=== PATIENT | female | born 1930 | race Caucasian/White ===

== ENCOUNTER 2018-08-13 18:07 | Inpatient (IN) | payer OTHER ==
[~2018-08-13] VITALS: Ht 165.1 cm; Wt 71.7 kg
[2018-08-13 18:07] VITALS: BP 136/90
[~2018-08-13 18:07] MED LIST: ACETAMINOPHEN325 M1 PO; AMITRIPTYLINE H10 M1 PO; AMITRIPTYLINE H10 M3; AMITRIPTYLINE H25 M2; ASPIRIN325 PO; BACTRIM DS TAB1 EACH PO; BENADRYL ALLERG25 MG PO; BENADRYL25 MG PO; CARAFATE 1 GM TA1 G1; CARAFATE 1 GM TA1 G1 PO; DONEPEZIL HCL 55 M1 PO; HYDROCODON-ACE1 EAC5 PO; HYDROCODON-ACE1 EAC7 PO; HYDROCODON-ACE1 EAC8 PO; HYDROCODON-ACE1 EACH PO; HYDROCODONE PO; IBUPROFEN200 M2 PO; LEVOXYL75 MCG PO; LEVSIN0.125 MG PO; LOPERAMIDE 2 MG2 M1 PO; LUNESTA1 MG PO; LUNESTA3 MG PO; NOHOMEMEDICATIONS; NORCO 5-325 TA1 EACH; OSCIMIN0.125 MG; PEPTO-BISM262 MG/15 PO; PHENERGAN 25 MG25 M1 PO; PHILLIPS500 MG PO; PREMARIN VAGINAL CRE VAG; PRILOSEC40 MG PO; PROTONIX 20 MG20 M1; PROTONIX40 M2 PO; TRAMADOL 50 MG50 MG PO; TUMS PO; ULTRAM 50MG TAB50 MG PO; [UNRECOGNIZED DRUG - CODE] PO
[2018-08-13] MEDS ORDERED: VITAMIN D250000 UNIT PO (18:09)
[2018-08-13] MEDS ORDERED: LEVSIN0.125 MG PO (18:09)
[2018-08-13 18:31] LABS: URINE BILIRUBIN NEGATIVE (Negative); URINE BLOOD NEGATIVE (Negative); URINE CLARITY CLEAR; URINE COLOR YELLOW; URINE GLUCOSE-RANDOM NEGATIVE (Negative); URINE KETONES NEGATIVE (Negative); URINE LEUKOCYTES-REFLEX NEGATIVE (Negative); URINE NITRITE-REFLEX NEGATIVE (Negative); URINE PROTEIN NEGATIVE (Negative); URINE SPECIFIC GRAVITY 1.025 (1.005-1.030); URINE UROBILINOGEN 0.2 E.U./dl (0.2-1.0)
[2018-08-13 18:42] LABS: ABSOLUTE LYMPHOCYTES 0.9 thou/uL (0.8-5.3); ABSOLUTE NEUTROPHILS 10.7 thou/uL (1.6-8.1); BASOPHILS 0.3 %; EOSINOPHILS 0.1 %; HEMATOCRIT 41.6 % (37.0-47.0); HEMOGLOBIN 13.7 gm/dL (12.0-15.0); LYMPHOCYTES 6.9 %; MCH 28.8 pg (26.0-34.0); MCV 87.3 fL (80.0-100.0); MONOCYTES 8.1 %; MPV 8.9 fl. (7.2-11.1); NUCLEATED RBCS 0 /100WBC; PLATELET COUNT* 228 thou/uL (150-400); POLYS 84.6 %; RBC 4.77 mil/uL (4.20-5.00); RDW-CV 14.2 % (10.5-14.5); WBC 12.6 thou/uL (4.0-11.0)
[2018-08-13 18:51] LABS: ANION GAP 9 mmol/L (7-16); BUN 17 mg/dL (7-18); CALCIUM 9.2 mg/dL (8.5-10.1); CHLORIDE 105 mmol/L (98-107); CO2 27 mmol/L (21-32); CREATININE 1.1 mg/dL (0.6-1.3); GLUCOSE 140 mg/dL (70-99); POTASSIUM 3.8 mmol/L (3.5-5.1); SODIUM 141 mmol/L (136-145)
[2018-08-13 18:54] LABS: APTT 26.4 Seconds (25.0-31.3); PROTIME 10.3 Seconds (9.20-11.50)
[2018-08-13 19:04] LABS: ALBUMIN 3.3 g/dL (3.4-5.0); ALKALINE PHOSPHATASE 118 U/L (46-116); CK-MB MASS 0.6 ng/mL (<0.5-3.6); NT-PRO BRAIN NAT PEPTIDE 445 pg/mL (<300); SGOT 13 U/L (15-37); SGPT 12 U/L (30-65); TOTAL BILIRUBIN 0.5 mg/dL (<0.1-1.0); TROPONIN-I LEVEL <0.06 ng/mL (<0.06)
[2018-08-13] MEDS ORDERED: PROTONIX40 M1 PO (21:11)
[2018-08-13] MEDS ORDERED: MYRBETRIQ50 MG PO (21:12)
[2018-08-13 21:20] VITALS: BP 128/82; BP 133/66
--- NOTE | 2018-08-14 07:07 | NUR ---
PT TO FLOOR APPOX 21OO. ADMISSION COMPLETED CHARTED, PT FAMILY TO BRING COPY OF LIVING WILL. SEE MAR. SEE CHARTING. FALL PRECAUTIONS IN PLACE. VITAL SIGNS STABLE. HOURLY ROUNDING FOR SAFETY.
[2018-08-14 08:00] VITALS: BP 118/57
--- NOTE | 2018-08-14 11:13 | EKG ---
[place] [address] ELECTROCARDIOGRAM REPORT Name: REGINA DIMASINE Room: [address] ADM IN M.R.#: [id number] Admission: 08/13/18 Attend Phys: Azael Hermosillo Discharge: Date of : [birth year] Report #: [id number] THIS REPORT FOR: //name// 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1930 Requested By: Armaan Skelton Order Number: [id number] MD: Milton Marvin Measurements Intervals [place] Rate: 99 P: 45 TN: 180 QRS: -59 QRSD: 95 T: 75 QT: 339 QTc: 435 Interpretive Statements Sinus rhythm Left anterior fascicular block Abnormal R-wave progression, late transition Minimal ST depression, lateral leads Compared to ECG 12/23/2016 21:09:15 ST (T wave) deviation now present Electronically Signed On 08-14-2018 11:13:20 CDT by Milton Marvin [email or web address] <ELECTRONICALLY SIGNED> By: Milton Marvin MD, [facility] 08/14/18 1113 1814 1814 Milton Marvin MD, [facility] /EPI
--- NOTE | 2018-08-14 11:46 | NUR ---
RECEIVED REPORT FROM WILL AND ASSUMED CARE OF PT @ 7784.PT IS ALERT TO SELF AND CONFUSED.PT IS IMPULSIVE AND KEEPS TRYING TO GET OUT OF BED AND CANT FOLLOW DIRECTIONS TO CALL NURSES STATION.VSS,MED-SURG STATUS,IV PATENT WITH IV FLUIDS INFUSING PER ORDERS.PT IS CALM AND COOPERATIVE WITH NO C/O PAIN.PT LEFT RESTING IN BED WITH CALL LIGHT AND FALL PRECAUTIONS IN PLACE.WILL CONTINUE TO MONITOR.
--- NOTE | 2018-08-14 14:06 | NUR ---
Left for Pt's dtr, awaiting call back
[2018-08-14 16:00] VITALS: BP 121/63
--- NOTE | 2018-08-14 17:41 | NUR ---
VSS.MED-SURG STATUS.PT REMAINS ON 2L O2 NC.PT IS CONFUSED BUT COOPERATIVE.NO C/O PAIN.IV PATENT WITH IVF INFUSING PER ORDERS.HOURLY ROUNDING COMPLETED FOR PT SAFETY.CALL LIGHT AND FALL PRECAUTIONS IN PLACE.WILL CONTINUE TO MONITOR FOR DURATION OF SHIFT.
[2018-08-14 20:00] VITALS: BP 110/65
[2018-08-15] VITALS: BP 115/57
[2018-08-15 05:10] LABS: HEMATOCRIT 37.7 % (37.0-47.0); HEMOGLOBIN 12.9 gm/dL (12.0-15.0); MCH 29.7 pg (26.0-34.0); MCHC 34.3 g/dL (28.0-37.0); MCV 86.6 fL (80.0-100.0); MPV 9.2 fl. (7.2-11.1); RBC 4.35 mil/uL (4.20-5.00); RDW-CV 13.9 % (10.5-14.5); WBC 11.6 thou/uL (4.0-11.0)
--- NOTE | 2018-08-15 05:58 | NUR ---
PT ORIENTED TO SELF. PT UP FREQUENTLY TO SIT ON COMMODE. PT HAS RETENTTION AND URGENCY. URINATING VERY SMALL AMOUNTS AT A TIME. SENT SAMPLE FOR UA. BLADDER SCANNED @ 0238-AMOUNT 211CC AFTER VOIDING. NO SOA REPORTED OR OBSERVED. CALL LIGHT IN REACH. HOURLY ROUNDING FOR SAFETY.
[2018-08-15 06:31] LABS: ALBUMIN 2.9 g/dL (3.4-5.0); CALCIUM 9.2 mg/dL (8.5-10.1); CREATININE 1.1 mg/dL (0.6-1.3); MAGNESIUM 1.8 mg/dL (1.8-2.4); POTASSIUM 3.9 mmol/L (3.5-5.1); TOTAL BILIRUBIN 0.6 mg/dL (<0.1-1.0); TOTAL PROTEIN 6.6 g/dL (6.4-8.2)
[2018-08-15 06:41] LABS: URINE BILIRUBIN NEGATIVE (Negative); URINE BLOOD TRACE (Negative); URINE CLARITY CLEAR; URINE COLOR YELLOW; URINE GLUCOSE-RANDOM NEGATIVE (Negative); URINE KETONES TRACE (Negative); URINE LEUKOCYTES-REFLEX TRACE (Negative); URINE NITRITE-REFLEX NEGATIVE (Negative); URINE PROTEIN NEGATIVE (Negative); URINE UROBILINOGEN 0.2 E.U./dl (0.2-1.0)
[2018-08-15 07:03] LABS: SQUAMOUS 4-10 Moderate /LPF (0-3)
[2018-08-15 07:04] LABS: URINE RBC None Seen /HPF (0-2); URINE WBC-REFLEX 0-5 Rare /HPF (0-5)
[2018-08-15 07:05] LABS: BACTERIA-REFLEX 1-9 Few /HPF (None Seen); CASTS None Seen /LPF (None Seen); CRYSTALS None Seen /LPF (None Seen); MUCUS 0-3 Light strn/LPF (None Seen)
[2018-08-15 08:00] VITALS: BP 123/61
--- NOTE | 2018-08-15 13:23 | NUR ---
CM spoke with Pt's dtr via phone. Dtr informs that Pt resides at home with her , dtr lived with her parents up until a few months ago when she got , dtr now lives in [place]. Per dtr, when she lived there, she made sure that Pt and would get up and take their meds appropriately. Pt's son lives next door and has been assisting since dtr moved out. Dtr states that Pt has a walker and commode at home. Dtr states that Pt and are pretty sedentary, but stated that Pt was able to walk about their home. has a caregiver that comes in through the [place], and she will prepare meals for the both of them, but she is only really there for , so she doesn't check to make sure that Pt has taken her meds. Dtr voices concerns regarding whether Pt has taken her meds as scheduled d/t hx of dementia. CM left for Pt's son to assess his level of involvement. Hx of [facility]. Hx of acute rehab. Discussed disposition, plan [place]. Dtr states that she would be willing to allow parents to come and live at her home, if the need arises. Awaiting call back from son. Dtr wants [facility] for skilled, but wants CM to discuss with son first. Following.
--- NOTE | 2018-08-15 13:46 | NUR ---
ASSUMED PT CARE REPORT RECEIVED FROM NURSE PT IS AOX3 FORGETFUL ON MEDSURG STATUS. ON 2 L NC SATURATION IS 94%. PT OUT OF BED TO CHAIR. IV ABX GIVEN. IVF INFUSING AT 100CC PER HOUR. PT HAS GOOD APPETITE. FALL PRECAUTION IN PLACE. PT TO BE TRANSFERED TO [facility] . REPORT GIVEN TO J&S NURSE. PT TRANSFERED AT 1345 ON WHEELCHAIR
--- NOTE | 2018-08-15 19:08 | NUR ---
REC'D REPORT APPROX 1400. PATIENT CONFUSED, REPEATING CONVERSATION. PATIENT HIGH FALL RISK, TRANSFERRED TO 115 FOR CLOSER OBSERVATION. UP TO CHAIR FOR SUPPER MEAL, ATE LESS THAN 25%. UP TO BSC W/ MIN ASST. VOIDING SM AMTS. BLADDER SCAN DONE THIS AFTERNOOON, APROX 250ML NOTED. IV CATH SITE NOTED INTACT. IV FLUIDS INFUSING W/O DIFF. CURRENTLY RESTING IN BED, EYES CLOSED, NO ACUTE DISTRESS NOTED. O2 2L/NC. CALL LIGHT IN REACH. HOB UP 30 DEGREES. ~TJRN
[2018-08-15 22:00] VITALS: BP 142/68
--- NOTE | 2018-08-16 07:33 | NUR ---
PT ORIENTED TO SELF ONLY. VITALS STABLE WITH 3L OF OXYGEN BY NC. PT CONFUSED AND TRIED TO GET UP EVERY TIME. UP TO BEDSIDE COMMODE WITH ASSIST WITH WALKER AND GAIT BELT. BED ALARM ON. MEDS GIVEN ORDERED. POST VOIDING RESIDUAL 146ML AT 0530. WILL CONTINUE TO MONITOR.
[2018-08-16 08:02] VITALS: BP 178/95
[2018-08-16 16:43] VITALS: BP 157/81
--- NOTE | 2018-08-16 19:00 | NUR ---
PATIENT PLEASANT AND COOPERATIVE THIS AM, USING CALL LIGHT FOR ASST. PATIENT BECOMES MORE CONFUSED MID AFTERNOON, INCREASING ANXIOUS, GETTING UP INDEP, NEEDS FREQUENT REDIRECTION. SEE MAR. IV CHANGED THIS AM, SEE INTERVENTION. ALEXANDERENY RESTING IN BED, SIDERAILS X4 UP, CALL LIGHT IN REACH, BED ALARM ON. O2 RA. ~TJRN
--- NOTE | 2018-08-17 07:31 | NUR ---
PT ORIENTED TO SELF ONLY, CONFUSED AND FORGETFUL. MEDS GIVEN ORDERED. PT DENIED PAIN. TEMP 99.9 AT 2200. TYLENOL PROVIDED, 98.8 ON RECHECK. UP TO THE COMMODE TO VOID EVERY 15 MINUTES WITH MAX ASSIST. AT MIDNIGHT, LABORED BREATHING NOTED AND HR FLUCTUATING. EKG DONE. SINUS TACHYCARDIA. 400 ML POST VOID RESIDUAL ON BLADDER SCAN AT 0600. NOTIFIED WILL CONTINUE TO MONITOR.
[2018-08-17 09:05] VITALS: BP 145/67
--- NOTE | 2018-08-17 15:25 | NUR ---
ASSUMED CARE OF PT AT 0700. PT RESTLESS AND ANXIOUS, TRYING TO CLIMB OUT OF RECLINER CHAIR. PT REORIENTATED TO IMPORTANCE OF USING CALL LIGHT.PRESSURE ALARM IN PLACE. MORNING MEDICATION ADMINISTERED ORDERED. ABT IV GIVEN AND FLUIDS INFUSING AT 100ML/HR. 0930 PT CONFUSED AND CONT TRYING TO CLIMB OUT OF CHAIR. ATIVAN 0.5MG GIVEN FOR INCREASED ANXIETY AND RESTLESSNESS.
--- NOTE | 2018-08-17 15:29 | NUR ---
1300 PT HAS HAD MINIMAL OUTPUT SO FAR THIS SHIFT. PT IS USUALLY CONTINENT AND ABLE TO URINATE ON COMMODE. PT LETHARGIC AND HAS NOT COMMUNICATED THE NEED TO USE THE RESTROOM. ON ASSESSMENT PT IN CONTINENT OF URINE, BUT MINIMAL. THIS NURSE INFORMED . NEW ORDERS RECEIVED; 1.STRAIGHT CATH PT FOR NO OUTPUT >8 HOURS. 2.START FLOMAX 0.4MG @HS DX; URINARY RETENTION. ORDERS ENTERED, FAMILY IN PT ROOM, INFORMED OF NEED TO STRAIGHT CATH. THEY EXPRESSED UNDERSTANDING.
[2018-08-17 16:00] VITALS: BP 129/58
[2018-08-17 17:51] LABS: BE -5.9 mmol/L (-2 to +3); PCO2 39.3 mmHg (35.0-45.0); PO2 88.6 mmHg (75.0-100.0); pH 7.319 (7.340-7.450)
--- NOTE | 2018-08-17 18:43 | NUR ---
1500 PT CONT TO EXHIBIT RESPIRATORY DISTRESS, STERNAL RETRACTIONS NOTED. O2 @ 2L VIA NC SATS REMAIN AROUND 96-97%. 1630 PT FAMILY HERE THROUGH THIS SHIFT AND CONT TO EXPRESS CONCERN ABOUT "PT CONDITION DETORIATING" STATING, "THIS IS NOT LIKE HER, SHE IS CONFUSED BUT ALWAYS TALKS TO US, AND SHE HAS NEVER HAD TROUBLE BREATHING" THIS NURSE INFORMED AND NEW ORDERS WERE RECEIVED. WE KNOW IT IS A HOLIDAY BUT WE WANT SOMETHING DONE, WE WANT TO KNOW WHAT IS WRONG AND WHY SHE IS GETTING WORSE INSTEAD OF BETTER"
--- NOTE | 2018-08-17 18:50 | NUR ---
NEW ORDERS FROM DR. PETERS RECEIVED; ABG STAT, CXR STAT, ZOPHANEX BREATHING TREATMENT STAT AND Q4H PRN. 1815 RESULTS RECEIVED AND CALLED TO [facility]; .
[2018-08-17 19:41] LABS: ABSOLUTE EOSINOPHILS 0.1 thou/uL (0.0-0.7); ABSOLUTE MONOCYTES 0.8 thou/uL (0.0-1.2); ABSOLUTE NEUTROPHILS 5.4 thou/uL (1.6-8.1); BASOPHILS 0.5 %; EOSINOPHILS 1.6 %; HEMATOCRIT 34.9 % (37.0-47.0); HEMOGLOBIN 11.8 gm/dL (12.0-15.0); LYMPHOCYTES 13.5 %; MCH 29.4 pg (26.0-34.0); MCHC 33.8 g/dL (28.0-37.0); MCV 86.8 fL (80.0-100.0); MONOCYTES 11.2 %; MPV 8.8 fl. (7.2-11.1); NUCLEATED RBCS 0 /100WBC; PLATELET COUNT* 233 thou/uL (150-400); POLYS 73.2 %; RBC 4.02 mil/uL (4.20-5.00); RDW-CV 13.8 % (10.5-14.5); WBC 7.4 thou/uL (4.0-11.0)
--- NOTE | 2018-08-17 19:50 | NUR ---
1830 PT IS BEING TRANSFERRED TO TELEMETRY ROOM 214
[2018-08-17 19:57] LABS: ANION GAP 9 mmol/L (7-16); BUN 11 mg/dL (7-18); CALCIUM 8.6 mg/dL (8.5-10.1); CHLORIDE 109 mmol/L (98-107); CO2 25 mmol/L (21-32); CREATININE 1.1 mg/dL (0.6-1.3); GLUCOSE 89 mg/dL (70-99); POTASSIUM 3.5 mmol/L (3.5-5.1); SODIUM 143 mmol/L (136-145)
[2018-08-17 20:00] VITALS: BP 136/77
[2018-08-17 20:08] LABS: TROPONIN-I LEVEL <0.06 ng/mL (<0.06)
[2018-08-18] VITALS: BP 134/72
[2018-08-18 04:00] VITALS: BP 130/51
[2018-08-18 05:16] LABS: HEMATOCRIT 34.7 % (37.0-47.0); HEMOGLOBIN 11.8 gm/dL (12.0-15.0); MCH 29.6 pg (26.0-34.0); MPV 8.9 fl. (7.2-11.1); RBC 3.99 mil/uL (4.20-5.00); RDW-CV 13.7 % (10.5-14.5); WBC 8.6 thou/uL (4.0-11.0)
[2018-08-18 05:35] LABS: ALBUMIN 2.5 g/dL (3.4-5.0); CREATININE 1.1 mg/dL (0.6-1.3); MAGNESIUM 1.5 mg/dL (1.8-2.4); POTASSIUM 3.5 mmol/L (3.5-5.1); TOTAL BILIRUBIN 0.5 mg/dL (<0.1-1.0); TOTAL PROTEIN 5.9 g/dL (6.4-8.2)
--- NOTE | 2018-08-18 05:40 | NUR ---
PT ALERT CONFUSED. ASKING TO GO TO BR Q 5-10 MIN. VOID SMALL AMTS FREQUENTLY. FLOMAX STARTED AT HS. NS AT 100. TELEMETRY SHOWS SR 1ST DEGREE AVB BBB. BREATH SOUNDS DIM WITH WHEZZING. O2 AT 2 LITERS NC. TURN Q 2 HOURS. COUGHING WITH TURNS.
[2018-08-18 08:00] VITALS: BP 144/70
--- NOTE | 2018-08-18 08:58 | NUR ---
CM left message for admissions at [facility] regarding status of referral. CM messaged rehab tech to request that PT/OT see Pt as soon as they can, CM to fax updated therapy notes to [facility] once available. [facility] to initiate auth once therapy notes are available.
--- NOTE | 2018-08-18 10:32 | EKG ---
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1930 Requested By: Edilia Roca Order Number: [id number] Reading MD: Shaan Arriaza Measurements Intervals [place] Rate: 104 P: 66 [place]: 193 QRS: -54 QRSD: 100 T: 65 QT: 381 QTc: 502 Interpretive Statements Sinus tachycardia LAD, consider left anterior fascicular block Abnormal R-wave progression, late transition Prolonged QT interval Compared to ECG 08/13/2018 18:14:20 Prolonged QT interval now present Sinus rhythm no longer present ST (T wave) deviation no longer present Electronically Signed On 08-18-2018 10:31:56 CDT by Shaan Arriaza [email or web address] <ELECTRONICALLY SIGNED> By: Shaan Arriaza MD, FAC 08/18/18 1031 0028 0028 Shaan Arriaza MD, FAC /EPI
[2018-08-18 11:53] VITALS: BP 125/84
[2018-08-18 16:00] VITALS: BP 141/66
[2018-08-18 20:00] VITALS: BP 139/81
[2018-08-19] VITALS: BP 148/65
[2018-08-19 04:00] VITALS: BP 154/70
--- NOTE | 2018-08-19 05:56 | NUR ---
ASSUMED CARE OF PT AFTER REPORT AT 1930. PT A&OX1. ONLY ORIENTED TO HERSELF. FORGETFUL. VSS. PHYSICAL ASSESSMENT COMPLETED AND CHARTED. PT ON O2 AT 2L NC. PT TRACING ST PACS ON TELE. PT UP WITH 1 ASSIST TO BSC. PT GOES TO THE BSC FREQUENTLY. FORGETS TO USE CALL LIGHT. PT COMPLAINED OF GENERALIZED PAIN- PAIN MEDS GIVEN PER MAR.
[2018-08-19 08:10] VITALS: BP 112/57
--- NOTE | 2018-08-19 10:38 | NUR ---
Updated therapy notes faxed to [employer], awaiting on insurance auth for skilled placement.
--- NOTE | 2018-08-19 11:49 | NUR ---
Nutrition: seen for LOS. Intake 60% of breakfast. Pt reports her appetite is not great. Does not know UBW, not wt loss from admit. Albumin low, meds reivewed. Pt would like to try Ensure once daily. Assessed a low-mild nutrition risk.
[2018-08-19 11:59] VITALS: BP 122/77
[2018-08-19 15:17] LABS: ABSOLUTE EOSINOPHILS 0.2 thou/uL (0.0-0.7); ABSOLUTE LYMPHOCYTES 0.8 thou/uL (0.8-5.3); ABSOLUTE MONOCYTES 0.8 thou/uL (0.0-1.2); BASOPHILS 0.6 %; EOSINOPHILS 2.5 %; HEMATOCRIT 33.4 % (37.0-47.0); HEMOGLOBIN 11.4 gm/dL (12.0-15.0); LYMPHOCYTES 11.8 %; MCH 29.3 pg (26.0-34.0); MCV 86.2 fL (80.0-100.0); MONOCYTES 12.2 %; MPV 8.4 fl. (7.2-11.1); NUCLEATED RBCS 0 /100WBC; PLATELET COUNT* 240 thou/uL (150-400); POLYS 72.9 %; RBC 3.87 mil/uL (4.20-5.00); RDW-CV 13.6 % (10.5-14.5); WBC 6.9 thou/uL (4.0-11.0)
[2018-08-19 15:25] LABS: CALCIUM 8.3 mg/dL (8.5-10.1)
[2018-08-19 15:28] LABS: MAGNESIUM 1.8 mg/dL (1.8-2.4); PHOSPHORUS* 2.2 mg/dL (2.5-4.9)
[2018-08-19 16:11] VITALS: BP 152/83
--- NOTE | 2018-08-19 19:31 | NUR ---
ASSUMED PT CARE AT 0730, FULL ASSESMENT DONE CHARTED. PT ORIENTED TO SELF AND SITUATION THIS AM. DENIES PAIN, VSS, ST ON THE MONITOR. O2 SAT 95% ON 2L. PT DROWSY BUT WAKES EASILY. UP TO CHAIR, WORKED WITH PT. WALKED WITH STAFF TO [facility]. THIS AFTERNOON, PT HAD EPISODE OF TACHYCARDIA IN THE 160'S, PT WAS SLEEPING AT THE TIME. CONCERNED THAT PT WAS HAVING APNEA, BIPAP STARTED. PT TOLERATED IT WELL. WAS PLACED BACK ON 2L FOR DINNER. PT UP TO [facility] SEVERL TIMES AND WAS UNABLE TO URINATE, STRAIT CATHED PT THIS EVENING GETTING 650 MLS OUT. PTS APPITITE MINIMAL. BOOST OFFERED, PT DRINKING IT AT THIS TIME. REPORT GIVEN TO BRANDON PHILLIPS
[2018-08-19 20:00] VITALS: BP 149/83
[2018-08-19 20:04] LABS: URINE BILIRUBIN NEGATIVE (Negative); URINE BLOOD NEGATIVE (Negative); URINE CLARITY CLEAR; URINE COLOR YELLOW; URINE GLUCOSE-RANDOM NEGATIVE (Negative); URINE KETONES 1+ (Negative); URINE LEUKOCYTES-REFLEX NEGATIVE (Negative); URINE NITRITE-REFLEX NEGATIVE (Negative); URINE PROTEIN NEGATIVE (Negative); URINE SPECIFIC GRAVITY 1.025 (1.005-1.030); URINE UROBILINOGEN 0.2 E.U./dl (0.2-1.0)
[2018-08-20] VITALS: BP 118/49
[2018-08-20 04:00] VITALS: BP 122/49
--- NOTE | 2018-08-20 04:48 | NUR ---
ASSUMED CARE OF PT AFTER REPORT AT 1930. PT A&0X1. ONLY ORIENTED TO HERSELF. REORIENTATION DONE. FORGETFUL. VSS. PHYSICAL ASSESSMENT COMPLETED AND CHARTED. PT ON O2 AT 3L NC/BIPAP WHEN SLEEPING. PT UP WITH 1 ASSIST TO BSC. PER DAUGHTER, PTS A SIDE SLEEPER AND USUALY SLEEP LATE IN AM AND WAKES UP AT NOON. PTS RETAINING URINE [address] HARTLEY INFORMED WITH ORDER TO INSERT STOKES AND DRAINED 600 MLS. PT TURNED ALBIN SIDES. CALL LIGHT WITHIN REACH.
--- NOTE | 2018-08-20 07:42 | CON ---
[address] [address] CONSULTATION Name: AURELIO DIMAS Room: [address] IN M.R.#: [id number] Admission: 08/13/18 Attend Phys: Azael Hermosillo Discharge: Date of : [birth year] Report #: [id number] THIS REPORT FOR: //name// CC: Vivian Ortega DATE OF SERVICE: 08/18/2018 REQUESTING PHYSICIAN: Dr. Edilia Roca. REASON FOR CONSULTATION: Respiratory distress and pneumonia. DISCUSSION: The patient is an 88-year-old woman who is a lifelong nonsmoker with no prior history of known lung disease. She does have a history of underlying dementia. She still is able to reside in her own home with her with support from family members. She was brought to the Emergency Department on 08/13/2018. She had been getting progressively weaker at home. She was also having issues with shortness of breath. Baseline, she does have some dementia, but was getting more confused. Was seen in the Emergency Department. X-rays revealed infiltrate. O2 saturations were marginal. Blood cultures were sent. She also had leukocytosis. She has been on antibiotics since admission. Had some low-grade fevers initially, those have improved. Over the weekend, she did have some episodes where she was much more short of breath. Unfortunately, she was also having increasing confusion. Did receive some doses of Ativan as well as amitriptyline. Those have since been discontinued. At the time I am seeing her today, she is quite sleepy. Does have a granddaughter and great granddaughter at the bedside who was able to provide some additional information. Otherwise, much of that is taken from the record. PAST MEDICAL HISTORY: Remarkable for the dementia. Did have prior left hip fracture requiring time in rehab several years ago, achalasia, has had bilateral rotator cuff surgery, cholecystectomy, tubal ligation, prior cellulitis, skin abscess and some back issues. HOME MEDICATIONS: Levothyroxine, amitriptyline 10 mg at bedtime, benazepril, vitamin D, Levsin, Protonix and Myrbetriq. SOCIAL HISTORY: She is a lifelong nonsmoker. She is . 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 REVIEW OF SYSTEMS: Unable to obtain from the patient. Talking to her family at the bedside, does appear she is generally fairly [place] [address] CONSULTATION Name: AURELIO DIMAS Room: [address]#: [id number] Admission: 08/13/18 Attend Phys: Azael Hermosillo Discharge: Date of : [birth year] Report #: [id number] basic ADLs. They do have help. However, she is extremely sedentary. 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 Then goes to bed and sleeps until about 3:00 p.m. She is not on any oxygen at home. She had been getting more confused at home. Family has also noted that she intermittently has some coughing and choking with p.o. intake at home even before this acute illness. Not aware of any recent falls. Otherwise, unable to obtain from the patient. FAMILY HISTORY: Positive for colon cancer. Also, lost a son to suicide. PHYSICAL EXAMINATION: GENERAL APPEARANCE: Elderly woman. She is in bed. Family was trying to wake her up enough to take some p.o. intake. She has O2 running at 2 liters per nasal cannula. Some of her respirations do sound a little congested. However, they are not labored. HEENT: Head is normocephalic. Mucous membranes do look moist. NECK: No definite JVD is noted. Trachea is midline. No supraclavicular adenopathy. HEART: Regular, mildly tachycardic in the high 90s. No S3 is heard. LUNGS: Reveal mild decrease in breath sounds. She does have a few rhonchi heard in the bases bilaterally. No wheezing is heard. No CVA tenderness is apparent. ABDOMEN: Mildly obese, but soft. Does not appear tender. Was uncomfortable with colder hands and stethoscope touching her. EXTREMITIES: She has no clubbing. She has arthritic changes of her hands. Radial pulses are present. Lower extremities, no definite edema is noted. Does have a few small ecchymotic areas noted. SKIN: Warm and dry. NEUROLOGIC: She is quite sleepy, is arousable. She will answer some simple questions. She is falling back to sleep quite easily. LABORATORY AND X-RAY FINDINGS: Arterial blood gases done yesterday on 2 liter, she had a pH 7.32, pCO2 of 39, pO2 of 89, bicarbonate of 20 with saturation 96%. On her chemistry profile, potassium is 3.5, BUN of 10, creatinine 1.1. Serum bicarbonate this morning was 24. Albumin 2.5, total protein 5.9. White blood cell count 8600 down from 12,600. Hemoglobin 11.8, hematocrit of 34.7. MRSA screen is pending. Blood cultures sent on admission, no growth. Repeat was sent yesterday as well. X-rays were reviewed. She does have some mild infiltrate and atelectatic changes seen in the left base. Followup imaging was continued to show these changes. May be somewhat improved on this morning's film. CT head was done, which did not show any acute findings. Swallow evaluation is pending. At this time, her current medications are cefepime, Flomax, Xopenex p.r.n., p.r.n. lorazepam, Lovenox for DVT prophylaxis, Aricept, amitriptyline, [place] [address] CONSULTATION Name: AURELIO DIMAS Room: [address]#: [id number] Admission: 08/13/18 Attend Phys: Azael Hermosillo Discharge: Date of : [birth year] Report #: [id number] Myrbetriq, Protonix, Levsin, vitamin D, levothyroxine. She had been on vancomycin and levofloxacin, those were changed today to cefepime. IMPRESSION: 1. Community-acquired pneumonia. Has been slow to respond. Most likely, has multifactorial reasons. With her advanced age and dementia, may not have a good response. Clinically, also suspect she may be intermittently aspirating. 2. Hypoxic respiratory failure. She is on low flow O2. 3. Dementia. 4. Mild metabolic acidosis. Noted on her blood gases yesterday, which certainly could be from her infection. RECOMMENDATIONS: 1. I will keep her neb treatments on a schedule rather than p.r.n. 2. O2 was needed. Wean to keep her sat greater than 90%. 3. Antibiotics per ID. 4. Long-term prognosis is guarded. She is currently a DNR. Family at the bedside certainly seems to be somewhat realistic in regards to her. <ELECTRONICALLY SIGNED> By: Juju Bravo MD 08/20/18 0742 1313 [id number] Bravo MD /nt
[2018-08-20 08:05] VITALS: BP 130/46
[2018-08-20 11:47] VITALS: BP 127/66
--- NOTE | 2018-08-20 13:31 | NUR ---
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 Faxed dc orders. Chart copied. Nurse report number is [id number]. Updated Pt's son.
--- NOTE | 2018-08-20 14:08 | CON ---
[address] [address] CONSULTATION Name: WINGAUREILO Room: [address] ADM IN M.R.#: [id number] Admission: 08/13/18 Attend Phys: Azael Hermosillo Discharge: Date of : [birth year] Report #: [id number] THIS REPORT FOR: //name// CC: Vivian Ortega DATE OF SERVICE: 08/18/2018 TYPE OF REPORT: Infectious disease consultation. ATTENDING PHYSICIAN: Simeon Ortega M.D. REASON FOR EVALUATION: Pneumonitis, complicated by respiratory failure and encephalopathy. HISTORY OF PRESENT ILLNESS: Chart reviewed, the patient examined. This is an 88-year-old woman who apparently lives in a facility, who 2 days prior to her admission on the had notable progressive weakness and developed some dyspnea, some encephalopathy due to concerns about possible acute illness. She was presented to the Emergency Room via EMS and clear that she was progressively weak, unable to walk or saturations were borderline in the low 90s. On evaluation, urinalysis otherwise unremarkable. Chest x-ray showed strand-like infiltrate, has question of pneumonitis in the left lower lung. CT of the head showed chronic changes, no acute intracranial process. She also had some low-grade temperature elevations to 100.9. She was then started empirically on antimicrobials with vancomycin and levofloxacin. At this point, she is really not able to give any details of history. She is markedly lethargic, involving somnolence. She is sitting up in a chair. She appears to be in ztir-lb-vivglxkz distress. ALLERGIES: To TAPE. CURRENT MEDICATIONS: Include vancomycin, tamsulosin, levalbuterol, lorazepam, enoxaparin, donepezil, amitriptyline, , levofloxacin, mirabegron, pantoprazole, ergocalciferol and levothyroxine. PAST MEDICAL HISTORY: History of cataracts, achalasia, previous cholecystectomy and tubal ligation. SOCIAL HISTORY: Nonsmoker. No ethanol. FAMILY HISTORY: Noncontributory. REVIEW OF SYSTEMS: Not reliably obtained. PHYSICAL EXAMINATION: [place] [address] CONSULTATION Name: AURELIO DIMAS Room: [address] IN [facility]#: [id number] Admission: 08/13/18 Attend Phys: Azael Hermosillo Discharge: Date of : [birth year] Report #: [id number] GENERAL: She is sitting up in chair. She appears chronically ill. She is difficult to arouse. It is not clear that she is oriented. VITAL SIGNS: T-max overnight 99 and now 98.2, pulse 109, respirations 16 and blood pressure 130/51. SKIN: Warm and dry. HEENT: Normocephalic. Extraocular muscles intact. NECK: Supple. LUNGS: Diminished breath sounds. Scattered crackles. HEART: Tachycardic some irregularity. ABDOMEN: Soft, nontender and nondistended. Does have some distal lower extremity edema. GENITOURINARY: Deferred. RECTAL: Deferred. LABORATORY DATA: Blood cultures sterile thus far. Electrolytes: Sodium 144, potassium 3.5, chloride 109, bicarbonate is 24, anion gap of 11, BUN and creatinine 10 and 1.1 and glucose of 81. LFTs unremarkable. Albumin of 2.5, total protein 5.9. CBC: White count of 8.6, H and H 11.8 and 34.7 and platelets of 219. Lactic acid as of yesterday evening 0.9. RADIOLOGICAL DATA: Chest x-ray showed improved aeration of the lungs and small pleural effusion. ASSESSMENT AND PLAN: Encephalopathy, complicated by respiratory failure, suspect multifactorial etiology. We will adjust antimicrobial therapy with some degree about adverse drug effect, particularly to the levofloxacin given neuropsychiatric, presumed encephalopathy and I do not think there is any sputum forthcoming. <ELECTRONICALLY SIGNED> By: Scar Bob MD 08/20/18 1408 1032 [id number] Bob MD /nt
[2018-08-20 15:05] VITALS: BP 127/66
[2018-08-20] MEDS ORDERED: CEPACOL SORE T1 EAC7 PO (15:10)
[2018-08-20] MEDS ORDERED: BENADRYL25 MG PO (15:11)
[2018-08-20] MEDS ORDERED: ERGOCALCIF50000 UNIT PO (15:12)
[2018-08-20] MEDS ORDERED: ATIVAN0.5 MG PO (15:13)
[2018-08-20] MEDS ORDERED: FLOMAX0.4 MG PO (15:13)
[2018-08-20] MEDS ORDERED: VOLTAREN GEL 1100 G2 TOP (15:14)
[2018-08-20] MEDS ORDERED: TYLENOL325 MG PO (15:14)
[2018-08-20] MEDS ORDERED: LEVALBUTER1.25 MG/0. INH (15:15)
[2018-08-20 15:19] LABS: ABSOLUTE EOSINOPHILS 0.2 thou/uL (0.0-0.7); ABSOLUTE LYMPHOCYTES 0.9 thou/uL (0.8-5.3); ABSOLUTE MONOCYTES 0.8 thou/uL (0.0-1.2); ABSOLUTE NEUTROPHILS 5.6 thou/uL (1.6-8.1); BASOPHILS 0.5 %; EOSINOPHILS 2.2 %; HEMATOCRIT 32.4 % (37.0-47.0); HEMOGLOBIN 11.2 gm/dL (12.0-15.0); LYMPHOCYTES 12.3 %; MCH 29.7 pg (26.0-34.0); MCHC 34.4 g/dL (28.0-37.0); MCV 86.3 fL (80.0-100.0); MONOCYTES 10.7 %; MPV 9.1 fl. (7.2-11.1); NUCLEATED RBCS 0 /100WBC; PLATELET COUNT* 266 thou/uL (150-400); POLYS 74.3 %; RBC 3.76 mil/uL (4.20-5.00); RDW-CV 13.6 % (10.5-14.5); WBC 7.5 thou/uL (4.0-11.0)
[2018-08-20] MEDS ORDERED: CEFDINIR300 MG PO (15:19)
[2018-08-20 16:43] LABS: CALCIUM 8.6 mg/dL (8.5-10.1); MAGNESIUM 1.6 mg/dL (1.8-2.4); PHOSPHORUS* 1.5 mg/dL (2.5-4.9); POTASSIUM 3.5 mmol/L (3.5-5.1)
[2018-08-20 17:11] VITALS: BP 131/65
== END 2018-08-20 17:15 | DRG 177 ==
LOC: M.ERS 18:07 → M.2W 18:56 → M.TBA-ER 18:56 → M.2W 20:26 → M.ORTHSURG 08-15 14:01 → M.2W 08-17 20:08
PROVIDERS: Family Medicine; Internal Medicine; Internal Medicine Critical Care Medicine; ADMIT Internal Medicine
PROC: 5A09357 Assistance with Respiratory Ventilation, Less than 24 Consecutive Hours, Continuous Positive Airway Pressure (ICD-10-PCS; principal; 2018-08-19)
PROC: 5A09357 Assistance with Respiratory Ventilation, Less than 24 Consecutive Hours, Continuous Positive Airway Pressure (ICD-10-PCS; 2018-08-20)
DX: J15.6 Pneumonia due to other Gram-negative bacteria (principal); G92 Toxic encephalopathy; J96.01 Acute respiratory failure with hypoxia; E87.2 Acidosis; E46 Unspecified protein-calorie malnutrition; F03.90 Unspecified dementia, unspecified severity, without behavioral disturbance, psychotic disturbance, mood disturbance, and anxiety; E03.9 Hypothyroidism, unspecified; E87.6 Hypokalemia; Z90.49 Acquired absence of other specified parts of digestive tract; Z98.49 Cataract extraction status, unspecified eye; Z88.6 Allergy status to analgesic agent; Z91.040 Latex allergy status; Z87.81 Personal history of (healed) traumatic fracture; Z85.038 Personal history of other malignant neoplasm of large intestine; Z68.26 Body mass index [BMI] 26.0-26.9, adult; Z79.82 Long term (current) use of aspirin; Z79.899 Other long term (current) drug therapy